=== PATIENT | male | born 1940 | race Caucasian/White ===

== ENCOUNTER → 2017-05-27 | Outpatient (CLI) | payer MEDICARE, BC ==
[~2017-05-27] MED LIST: ALLOPURINOL100 MG PO; BYSTOLIC5 MG PO; COLACE 100100 MG/CAP PO; SYNTHROID 0.10.15 MG PO; TRICOR145 MG PO; ZETIA 10MG TAB10 MG PO
== END ==
LOC: COL.VAS 10:23
DX: I63.9 Cerebral infarction, unspecified (principal); I67.82 Cerebral ischemia; I65.23 Occlusion and stenosis of bilateral carotid arteries; R09.89 Other specified symptoms and signs involving the circulatory and respiratory systems; R51 Headache

== ENCOUNTER 2017-06-18 13:21 | Emergency (ER) | payer MEDICARE, BC ==
[~2017-06-18] VITALS: Ht 180.3 cm; Wt 89.1 kg
[~2017-06-18 13:21] MED LIST changes: -ALLOPURINOL100 MG PO; +ZYLOPRIM 100MG100 MG PO
[2017-06-18 13:25] VITALS: TEMP 97.7
[2017-06-18] MEDS ORDERED: ASPIRIN E.C. 8181 MG PO (15:11)
[2017-06-18] MEDS ORDERED: BYSTOLIC20 MG PO (15:12)
[2017-06-18 15:35] LABS: BASO % 0.2 % (0.0-2.0); EOS # 0.1 (0.0-0.7); EOS % 0.4 % (0-4.0); GRAN # 7.8 (1.4-6.5); GRAN % 59.5 % (42.2-75.2); HEMATOCRIT 45.4 % (42.0-52.0); HEMOGLOBIN 15.6 g/dl (13.5-18.0); LYMPH # 3.8 (1.2-3.4); LYMPH % 29.1 % (20.0-51.0); MEAN CELL VOLUME 92 fl (80.0-100.0); MEAN CORPUSCULAR HEMOGLOBIN 32 pg (27.0-31.0); MEAN CORPUSCULAR HGB CONC 34 g/dl (33.0-37.0); MEAN PLATELET VOLUME 11.7 fl (7.4-10.4); MONO # 1.4 (0.1-0.6); MONO % 10.5 % (1.7-9.3); PLATELET COUNT 165 K/mm3 (130-400); RED BLOOD COUNT 4.94 M/mm3 (4.20-5.60)
[2017-06-18 15:48] LABS: ALANINE AMINOTRANSFERASE 33 U/L (21-72); ALBUMIN 4.5 gm/dL (3.5-5.0); ALKALINE PHOSPHATASE 102 U/L (50-136); ANION GAP 11 mmol/L (7-16); AST,SGOT 19 U/L (15-37); BILIRUBIN,TOTAL 0.9 mg/dL (0.0-1.0); BLOOD UREA NITROGEN 26 mg/dL (9-20); CALCIUM 9.7 mg/dL (8.4-10.2); CARBON DIOXIDE 25 mmol/L (22-30); CHLORIDE 101 mmol/L (98-107); CREATININE, serum 1.14 mg/dL (0.66-1.25); GLUCOSE 150 mg/dL (74-106); POTASSIUM 4.1 mmol/L (3.4-5.0); SODIUM 137 mmol/L (137-145); TOTAL PROTEIN 8.1 gm/dL (6.4-8.2)
[2017-06-18 15:56] LABS: TROPONIN-I < 0.012 ng/mL (0.000-0.034)
[2017-06-18 15:57] LABS: ERYTHROCYTE SEDIMENTATION RATE 16 mm/hr (0-30)
[2017-06-18] MEDS ORDERED: PERCOCET 325 MG1 TA2 PO (17:20)
[2017-06-18] MEDS ORDERED: INDOCIN 25MG CA25 MG PO (17:22)
[2017-06-18 17:57] VITALS: BP 141/73; PULSE 50
== END 2017-06-18 17:57 | disposition home or self-care (01) ==
LOC: COL.ER 13:21
PROVIDERS: Emergency Medicine
DX: M25.542 Pain in joints of left hand (principal); M25.541 Pain in joints of right hand; M25.511 Pain in right shoulder; M25.512 Pain in left shoulder; I10 Essential (primary) hypertension; E78.5 Hyperlipidemia, unspecified; E03.9 Hypothyroidism, unspecified; M10.9 Gout, unspecified; Z86.73 Personal history of transient ischemic attack (TIA), and cerebral infarction without residual deficits; Z79.82 Long term (current) use of aspirin
CPT/HCPCS: J1885; J3010

== ENCOUNTER 2017-06-20 07:35 | Emergency (ER) | payer MEDICARE, BC ==
[~2017-06-20] VITALS: Ht 182.9 cm; Wt 90.9 kg
[~2017-06-20 07:35] MED LIST changes: +ASPIRIN E.C. 8181 MG PO; +BYSTOLIC20 MG PO; +INDOCIN 25MG CA25 MG PO; +PERCOCET 325 MG1 TA2 PO
[2017-06-20 07:40] VITALS: TEMP 98.1
[2017-06-20 08:34] LABS: BASO % 0.3 % (0.0-2.0); EOS # 0.1 (0.0-0.7); EOS % 1.2 % (0-4.0); GRAN # 5.5 (1.4-6.5); GRAN % 73.4 % (42.2-75.2); HEMATOCRIT 43.9 % (42.0-52.0); LYMPH # 1.1 (1.2-3.4); LYMPH % 15.1 % (20.0-51.0); MEAN CELL VOLUME 92 fl (80.0-100.0); MEAN CORPUSCULAR HEMOGLOBIN 31 pg (27.0-31.0); MEAN CORPUSCULAR HGB CONC 34 g/dl (33.0-37.0); MEAN PLATELET VOLUME 11.4 fl (7.4-10.4); MONO # 0.7 (0.1-0.6); MONO % 9.7 % (1.7-9.3); PLATELET COUNT 131 K/mm3 (130-400); RED BLOOD COUNT 4.79 M/mm3 (4.20-5.60); REDCELL DISTRIBUTION WIDTH-CV 12.8 % (11.5-14.5)
[2017-06-20 08:41] LABS: BILIRUBIN,TOTAL 1.2 mg/dL (0.0-1.0); C-REACTIVE PROTEIN 7.5 mg/dL (0.0-0.9); CALCIUM 9.6 mg/dL (8.4-10.2); CREATININE, serum 0.9 mg/dL (0.66-1.25); POTASSIUM 4.5 mmol/L (3.4-5.0); TOTAL PROTEIN 7.5 gm/dL (6.4-8.2); URIC ACID 7.1 mg/dL (3.5-8.5)
[2017-06-20 08:57] LABS: ERYTHROCYTE SEDIMENTATION RATE 27 mm/hr (0-30)
[2017-06-20 09:02] LABS: COLLECTION METHOD CLEAN CATCH
[2017-06-20 09:07] LABS: MUCOUS Present /lpf; PH 5 (5-8); SQUAMOUS EPITHELIAL None Seen /hpf; URINE APPEARANCE Clear; URINE BACTERIA None Seen /hpf; URINE BILIRUBIN Negative (NEGATIVE); URINE BLOOD Negative (NEGATIVE); URINE COLOR Yellow; URINE GLUCOSE Negative (NEGATIVE); URINE KETONE Trace (NEGATIVE); URINE LEUKOCYTE ESTERASE Negative (NEGATIVE); URINE NITRATE Negative (NEGATIVE); URINE PROTEIN(semi-quant) Negative (NEGATIVE); URINE RBC 0-2 /hpf
[2017-06-20 11:47] VITALS: BP 153/60; PULSE 62
[2017-06-20] MEDS ORDERED: PREDNISONE20 MG PO (12:01)
== END 2017-06-20 12:19 | disposition home or self-care (01) ==
LOC: COL.ER 07:35
PROVIDERS: Emergency Medicine
DX: M25.521 Pain in right elbow (principal); M79.641 Pain in right hand; M25.551 Pain in right hip; I10 Essential (primary) hypertension; Z86.73 Personal history of transient ischemic attack (TIA), and cerebral infarction without residual deficits; Z79.82 Long term (current) use of aspirin
CPT/HCPCS: J1885; J2405; J3010; J7030; J7512

== ENCOUNTER 2017-08-12 09:30 | Outpatient (RCR) | payer MEDICARE, BC ==
[~2017-08-12 09:30] MED LIST changes: +PREDNISONE20 MG PO
== END 2017-09-12 | disposition home or self-care (01) ==
LOC: WSPT
DX: I63.9 Cerebral infarction, unspecified (principal)
CPT/HCPCS: G8978-GP; G8979-GP; G8980-GP

== ENCOUNTER → 2017-08-13 | Outpatient (CLI) | payer MEDICARE, BC | LOC: COL.RAD 12:00 | DX: I63.9 Cerebral infarction, unspecified (principal); G31.9 Degenerative disease of nervous system, unspecified ==

== ENCOUNTER 2018-04-09 02:11 | Emergency (ER) | payer MEDICARE, BC ==
[~2018-04-09] VITALS: Ht 180.3 cm; Wt 88.2 kg
[2018-04-09] MEDS ORDERED: AGGRENOX ER 251 CER PO (02:26)
[2018-04-09 02:46] LABS: BASO % 0.4 % (0.0-2.0); EOS # 0.2 (0.0-0.7); EOS % 2.6 % (0-4.0); GRAN # 3.8 (1.4-6.5); HEMATOCRIT 44.5 % (42.0-52.0); HEMOGLOBIN 15.5 g/dl (13.5-18.0); LYMPH # 3.4 (1.2-3.4); LYMPH % 42.1 % (20.0-51.0); MEAN CELL VOLUME 92 fl (80.0-100.0); MEAN CORPUSCULAR HEMOGLOBIN 32 pg (27.0-31.0); MEAN CORPUSCULAR HGB CONC 35 g/dl (33.0-37.0); MEAN PLATELET VOLUME 10.8 fl (7.4-10.4); MONO # 0.6 (0.1-0.6); MONO % 7.8 % (1.7-9.3); PLATELET COUNT 136 K/mm3 (130-400); RED BLOOD COUNT 4.83 M/mm3 (4.20-5.60)
[2018-04-09 03:00] LABS: ALANINE AMINOTRANSFERASE 29 U/L (21-72); ALBUMIN 4.4 gm/dL (3.5-5.0); ALKALINE PHOSPHATASE 97 U/L (50-136); ANION GAP 8 mmol/L (7-16); AST,SGOT 25 U/L (15-37); BILIRUBIN,TOTAL 0.5 mg/dL (0.0-1.0); BLOOD UREA NITROGEN 21 mg/dL (9-20); C-REACTIVE PROTEIN < 0.5 mg/dL (0.0-0.9); CALCIUM 9.8 mg/dL (8.4-10.2); CARBON DIOXIDE 27 mmol/L (22-30); CHLORIDE 104 mmol/L (98-107); CREATININE, serum 0.96 mg/dL (0.66-1.25); GLUCOSE 129 mg/dL (74-106); POTASSIUM 3.9 mmol/L (3.4-5.0); SODIUM 139 mmol/L (137-145); TOTAL PROTEIN 7.6 gm/dL (6.4-8.2)
[2018-04-09 03:09] LABS: TROPONIN-I < 0.012 ng/mL (0.000-0.034)
[2018-04-09 03:31] VITALS: TEMP 96.8
[2018-04-09] MEDS ORDERED: ATIVAN 0.50.5 MG/TAB PO (05:34)
[2018-04-09 07:32] VITALS: PULSE 64
[2018-04-09 07:50] VITALS: BP 160/74
== END 2018-04-09 08:07 | disposition home or self-care (01) ==
LOC: COL.ER 02:11
PROVIDERS: Emergency Medicine
DX: I10 Essential (primary) hypertension (principal); Z79.82 Long term (current) use of aspirin; Z86.73 Personal history of transient ischemic attack (TIA), and cerebral infarction without residual deficits
CPT/HCPCS: J2060; J2405; J7030

== ENCOUNTER 2018-07-25 11:08 | Emergency (ER) | payer MEDICARE, BC ==
[~2018-07-25] VITALS: Ht 180.3 cm; Wt 91.8 kg
[~2018-07-25 11:08] MED LIST changes: +AGGRENOX ER 251 CER PO; +ATIVAN 0.50.5 MG/TAB PO
[2018-07-25 11:20] VITALS: TEMP 96.8
[2018-07-25 11:47] LABS: BASO % 0.3 % (0.0-2.0); EOS # 0.2 (0.0-0.7); EOS % 2.7 % (0-4.0); GRAN # 3.3 (1.4-6.5); GRAN % 55.7 % (42.2-75.2); HEMATOCRIT 41.7 % (42.0-52.0); HEMOGLOBIN 14.6 g/dl (13.5-18.0); LYMPH # 1.9 (1.2-3.4); LYMPH % 32.3 % (20.0-51.0); MEAN CELL VOLUME 94 fl (80.0-100.0); MEAN CORPUSCULAR HEMOGLOBIN 33 pg (27.0-31.0); MEAN CORPUSCULAR HGB CONC 35 g/dl (33.0-37.0); MEAN PLATELET VOLUME 10.6 fl (7.4-10.4); MONO # 0.5 (0.1-0.6); MONO % 8.7 % (1.7-9.3); PLATELET COUNT 118 K/mm3 (130-400); RED BLOOD COUNT 4.46 M/mm3 (4.20-5.60); REDCELL DISTRIBUTION WIDTH-CV 12.9 % (11.5-14.5)
[2018-07-25 11:57] LABS: INR 1.1 (0.8-3.0)
[2018-07-25 11:58] LABS: ALANINE AMINOTRANSFERASE 15 U/L (21-72); ALBUMIN 4.1 gm/dL (3.5-5.0); ALKALINE PHOSPHATASE 87 U/L (50-136); ANION GAP 8 mmol/L (7-16); AST,SGOT 22 U/L (15-37); BILIRUBIN,TOTAL 0.7 mg/dL (0.0-1.0); BLOOD UREA NITROGEN 15 mg/dL (9-20); CALCIUM 9.5 mg/dL (8.4-10.2); CARBON DIOXIDE 25 mmol/L (22-30); CHLORIDE 105 mmol/L (98-107); CREATININE, serum 0.97 mg/dL (0.66-1.25); GLUCOSE 127 mg/dL (74-106); POTASSIUM 4.3 mmol/L (3.4-5.0); SODIUM 138 mmol/L (137-145); TOTAL PROTEIN 7.1 gm/dL (6.4-8.2)
[2018-07-25 11:59] LABS: PARTIAL THROMBOPLASTIN TIME 33.7 SECONDS (26.0-37.0)
[2018-07-25 12:12] LABS: TROPONIN-I < 0.012 ng/mL (0.000-0.035)
[2018-07-25 13:13] VITALS: BP 116/58; PULSE 63
== END 2018-07-25 13:38 | disposition home or self-care (01) ==
LOC: COL.ER 11:08
PROVIDERS: Family Medicine
DX: I10 Essential (primary) hypertension (principal); Z86.73 Personal history of transient ischemic attack (TIA), and cerebral infarction without residual deficits; Z79.82 Long term (current) use of aspirin

== ENCOUNTER → 2018-08-04 | Outpatient (CLI) | payer MEDICARE, BC | LOC: COL.VAS 08:00 | DX: I67.89 Other cerebrovascular disease (principal); H81.10 Benign paroxysmal vertigo, unspecified ear; I65.21 Occlusion and stenosis of right carotid artery | CPT/HCPCS: A9585 ==

== ENCOUNTER → 2018-08-12 | Outpatient (CLI) | payer MEDICARE, BC | LOC: COL.RAD 14:03 | DX: I65.23 Occlusion and stenosis of bilateral carotid arteries (principal); I63.9 Cerebral infarction, unspecified; Z98.62 Peripheral vascular angioplasty status | CPT/HCPCS: Q9967 ==

== ENCOUNTER 2018-09-05 21:50 | Observation (INO) | payer MEDICARE, BC ==
[~2018-09-05] VITALS: Ht 180.3 cm; Wt 92.3 kg
[2018-09-05 22:19] LABS: BASO % 0.3 % (0.0-2.0); EOS # 0.2 (0.0-0.7); EOS % 2.5 % (0-4.0); GRAN # 3.9 (1.4-6.5); GRAN % 53.3 % (42.2-75.2); HEMATOCRIT 42.5 % (42.0-52.0); HEMOGLOBIN 14.9 g/dl (13.5-18.0); LYMPH # 2.6 (1.2-3.4); MEAN CELL VOLUME 93 fl (80.0-100.0); MEAN CORPUSCULAR HEMOGLOBIN 33 pg (27.0-31.0); MEAN CORPUSCULAR HGB CONC 35 g/dl (33.0-37.0); MEAN PLATELET VOLUME 10.8 fl (7.4-10.4); MONO # 0.6 (0.1-0.6); MONO % 7.6 % (1.7-9.3); PLATELET COUNT 133 K/mm3 (130-400); RED BLOOD COUNT 4.55 M/mm3 (4.20-5.60); REDCELL DISTRIBUTION WIDTH-CV 12.6 % (11.5-14.5)
[2018-09-05 22:21] LABS: INR 1.1 (0.8-3.0)
[2018-09-05 22:25] LABS: ALBUMIN 4.3 gm/dL (3.5-5.0); BILIRUBIN,TOTAL 0.6 mg/dL (0.0-1.0); CALCIUM 9.7 mg/dL (8.4-10.2); CREATININE, serum 1.55 (0.66-1.25); POTASSIUM 4.2 mmol/L (3.4-5.0); TOTAL PROTEIN 7.6 gm/dL (6.4-8.2)
[2018-09-05] MEDS ORDERED: SYNTHROID0.137 MG PO (23:38)
[2018-09-05] MEDS ORDERED: NORVASC 5MG5 MG/TAB PO (23:38)
[2018-09-05] MEDS ORDERED: ASPIRIN 81M81 MG/TA2 PO (23:39)
[2018-09-06] VITALS (10 sets, daily range): BP systolic 122–168; BP diastolic 44–63; PULSE 51–57; TEMP 97.4–98.4
--- NOTE | 2018-09-06 00:45 | NUR ---
Pt arrived to room 315 via stretcher from emergency department. Lung sounds clear, abdominal sounds active, pulses +3, dizziness upon standing needed 1 assist to the bed, not steady on feet- will be high fall risk. Elevated BP, other vitals stable. States pressure in head is no longer there from ER. Hand online user experience strategist equal, able to lift both arms and legs and meet resistance, no facial droop noted. Denies pain at this time.
[2018-09-06] MEDS ORDERED: NORVASC 5MG5 MG/TAB PO (00:49)
[2018-09-06 04:26] LABS: BASO % 0.7 % (0.0-2.0); EOS # 0.2 (0.0-0.7); EOS % 3.1 % (0-4.0); GRAN # 2.8 (1.4-6.5); GRAN % 46.1 % (42.2-75.2); HEMATOCRIT 40.1 % (42.0-52.0); LYMPH # 2.5 (1.2-3.4); LYMPH % 41.1 % (20.0-51.0); MEAN CELL VOLUME 94 fl (80.0-100.0); MEAN CORPUSCULAR HEMOGLOBIN 33 pg (27.0-31.0); MEAN CORPUSCULAR HGB CONC 35 g/dl (33.0-37.0); MEAN PLATELET VOLUME 10.8 fl (7.4-10.4); MONO # 0.5 (0.1-0.6); MONO % 8.7 % (1.7-9.3); PLATELET COUNT 115 K/mm3 (130-400); RED BLOOD COUNT 4.28 M/mm3 (4.20-5.60); REDCELL DISTRIBUTION WIDTH-CV 12.5 % (11.5-14.5)
[2018-09-06 04:36] LABS: ANION GAP 7 mmol/L (7-16); BLOOD UREA NITROGEN 18 mg/dL (9-20); CALCIUM 9.5 mg/dL (8.4-10.2); CARBON DIOXIDE 25 mmol/L (22-30); CHLORIDE 105 mmol/L (98-107); CHOLESTEROL 210 mg/dL (120-200); CHOLESTEROL RISK RATIO 6.3; CREATININE, serum 1.15 (0.66-1.25); GLUCOSE 106 mg/dL (74-106); HDL CHOLESTEROL 33 mg/dL; LDL CHOLESTEROL 108 mg/dL; POTASSIUM 4.1 mmol/L (3.4-5.0); SODIUM 137 mmol/L (137-145); TRIGLYCERIDE 347 mg/dL
[2018-09-06 05:30] LABS: TROPONIN-I 6 HR POST INITIAL < 0.012 ng/mL (0.000-0.034)
--- NOTE | 2018-09-06 05:49 | NUR ---
Pt's modified stroke scale, neuro checks have remain unchanged- no deeficits noted at this time, BP's, stroke scale, and neuro checks every hour. SBP 140's-150's. Ambulated to restroom once around 0100, SBA, a little unsteady but reported dizziness/vertigo was much improved. No reports of pain at this time.
--- NOTE | 2018-09-06 07:00 | NUR ---
Report given to EILEEN Nelson. Patient awake in bed. No needs at this time.
--- NOTE | 2018-09-06 08:30 | NUR ---
Assessment complete. Pt is AXO X3, denies having any pain at this time. Breathing is even and unlabored on room air. Tele on. LF INT flushes easily, remains free of complications, and is CDI. Pt's daughter is at the bedside; all questions answered. Dr. Zimmerman is at the bedside. Call light within reach, will continue to monitor.
--- NOTE | 2018-09-06 09:54 | NUR ---
SW attended clinical rounds to discuss discharge planning. Patient lives independently at home alone but his daughter lives close by. Patient's PCP is Dr Mxaimino Car but he will be seen by Dr Murdock since Dr Car retired. Patient obtains prescriptions from [facility] and denies difficulty obtaining meds. Patient does not use any home health services or DME in the home. Patient will be seen by PT and OT. Patient is interested in outpatient PT because he is an independent person and does not like to be home bound. BILL will follow up with PT and OT after eval but BILL does not anticipate any discharge needs.
--- NOTE | 2018-09-06 11:03 | NUR ---
Initial visit; Patient thanked Addictions Counselor for looking in on him and letting him know of the availability of spiritual care at [place].
--- NOTE | 2018-09-06 15:00 | NUR ---
Physical assessment completed, pt A+Ox3, denies dizziness iwth standing, this RN observed him walking from bed to chair and he was steady while ambulating. Chair alarm in place[facility] BLE [facility] + edema, further findings WNL.
--- NOTE | 2018-09-06 18:27 | NUR ---
tHIS rN REVIEWED discharge instructions with pt, answered all questions. INT remvoed with tip intact, site free of redness/swelling. personal belongings collected and pt escorted out
== END 2018-09-06 18:29 | disposition home or self-care (01) ==
LOC: COL.ER 21:50 → SURG 09-06 00:10 → MEDICAL 09-06 00:26
PROVIDERS: Emergency Medicine; Nurse Practitioner; ADMIT Internal Medicine
DX: R41.82 Altered mental status, unspecified (principal); E78.5 Hyperlipidemia, unspecified; Z86.73 Personal history of transient ischemic attack (TIA), and cerebral infarction without residual deficits; E03.9 Hypothyroidism, unspecified; M10.9 Gout, unspecified; I16.0 Hypertensive urgency; R94.31 Abnormal electrocardiogram [ECG] [EKG]; I12.9 Hypertensive chronic kidney disease with stage 1 through stage 4 chronic kidney disease, or unspecified chronic kidney disease; N18.9 Chronic kidney disease, unspecified; K21.9 Gastro-esophageal reflux disease without esophagitis; G62.9 Polyneuropathy, unspecified; M19.011 Primary osteoarthritis, right shoulder; M19.012 Primary osteoarthritis, left shoulder; I08.3 Combined rheumatic disorders of mitral, aortic and tricuspid valves; Z88.8 Allergy status to other drugs, medicaments and biological substances; Z88.6 Allergy status to analgesic agent; Z88.5 Allergy status to narcotic agent; Z79.82 Long term (current) use of aspirin; Z96.653 Presence of artificial knee joint, bilateral
CPT/HCPCS: A9585; J7030

== ENCOUNTER 2018-12-26 09:30 | Outpatient (RCR) | payer MEDICARE, BC ==
[~2018-12-26 09:30] MED LIST changes: +ASPIRIN 81M81 MG/TA2 PO; +NORVASC 5MG5 MG/TAB PO; +SYNTHROID0.137 MG PO
== END 2019-02-05 | disposition still patient (30) ==
LOC: WSPT
DX: I63.9 Cerebral infarction, unspecified (principal); R26.0 Ataxic gait; R29.818 Other symptoms and signs involving the nervous system

== ENCOUNTER → 2019-07-05 | Outpatient (CLI) | payer MEDICARE, BC | LOC: COL.RAD 07-03 13:00 | DX: I65.23 Occlusion and stenosis of bilateral carotid arteries (principal); I65.03 Occlusion and stenosis of bilateral vertebral arteries; Z95.828 Presence of other vascular implants and grafts | CPT/HCPCS: Q9967 ==

== ENCOUNTER → 2019-08-01 | Outpatient (CLI) | payer MEDICARE, BC | LOC: COL.CARD 10:30 | DX: I69.30 Unspecified sequelae of cerebral infarction (principal) ==

== ENCOUNTER 2020-01-30 10:00 | Outpatient (RCR) | payer MEDICARE, BC | END 2020-02-29 | disposition home or self-care (01) | LOC: WSC | DX: E11.42 Type 2 diabetes mellitus with diabetic polyneuropathy (principal); R26.0 Ataxic gait ==

== ENCOUNTER 2020-09-05 15:48 | Emergency (ER) | payer MEDICARE, BC ==
[~2020-09-05] VITALS: Ht 167.6 cm; Wt 95.5 kg
[2020-09-05 16:20] VITALS: TEMP 98.6
[2020-09-05] MEDS ORDERED: CEPHALEXIN500 M1 PO (17:00)
[2020-09-05 17:39] VITALS: BP 145/74; PULSE 82
== END 2020-09-05 17:39 | disposition home or self-care (01) ==
LOC: COL.ER 15:48
DX: S91.214A Laceration without foreign body of right lesser toe(s) with damage to nail, initial encounter (principal); I10 Essential (primary) hypertension; E78.5 Hyperlipidemia, unspecified; E03.9 Hypothyroidism, unspecified; Z86.73 Personal history of transient ischemic attack (TIA), and cerebral infarction without residual deficits; Z88.8 Allergy status to other drugs, medicaments and biological substances; Z88.6 Allergy status to analgesic agent; Z79.82 Long term (current) use of aspirin; Z79.890 Hormone replacement therapy; W22.8XXA Striking against or struck by other objects, initial encounter

== ENCOUNTER 2020-10-08 11:35 | Emergency (ER) | payer MEDICARE, BC ==
[~2020-10-08] VITALS: Ht 180.3 cm; Wt 91.8 kg
[~2020-10-08 11:35] MED LIST changes: +CEPHALEXIN500 M1 PO
[2020-10-08 11:40] VITALS: TEMP 97.4
[2020-10-08 12:16] LABS: BASO % 0.3 % (0.0-2.0); EOS # 0.3 (0.0-0.7); EOS % 3.8 % (0-4.0); GRAN # 4.1 (1.4-6.5); HEMOGLOBIN 14.4 g/dl (13.5-18.0); LYMPH # 2.1 (1.2-3.4); LYMPH % 29.9 % (20.0-51.0); MEAN CELL VOLUME 94 fl (80.0-100.0); MEAN CORPUSCULAR HEMOGLOBIN 32 pg (27.0-31.0); MEAN CORPUSCULAR HGB CONC 34 g/dl (33.0-37.0); MEAN PLATELET VOLUME 10.4 fl (7.4-10.4); MONO # 0.6 (0.1-0.6); MONO % 7.7 % (1.7-9.3); PLATELET COUNT 147 K/mm3 (130-400); RED BLOOD COUNT 4.57 M/mm3 (4.20-5.60)
[2020-10-08 12:29] LABS: ALANINE AMINOTRANSFERASE 15 U/L (4-49); ALBUMIN 4.3 gm/dL (3.5-5.0); ALKALINE PHOSPHATASE 91 U/L (50-136); ANION GAP 6 mmol/L (7-16); AST,SGOT 26 U/L (15-37); BILIRUBIN,TOTAL 0.6 mg/dL (0.0-1.0); BLOOD UREA NITROGEN 21 mg/dL (9-20); CALCIUM 9.6 mg/dL (8.4-10.2); CARBON DIOXIDE 27 mmol/L (22-30); CHLORIDE 102 mmol/L (98-107); CREATININE, serum 1.19 (0.66-1.25); GLUCOSE 114 mg/dL (74-106); POTASSIUM 4.4 mmol/L (3.4-5.0); SODIUM 136 mmol/L (137-145)
[2020-10-08] MEDS ORDERED: ZOLOFT 25MG25 MG PO (12:43)
[2020-10-08] MEDS ORDERED: ZOLOFT 50MG50 MG PO (12:43)
[2020-10-08 13:15] LABS: TROPONIN-I < 0.012 ng/mL (0.000-0.035)
[2020-10-08 14:10] VITALS: BP 177/83; PULSE 50
== END 2020-10-08 14:10 | disposition home or self-care (01) ==
LOC: COL.ER 11:35
PROVIDERS: Emergency Medicine
DX: I10 Essential (primary) hypertension (principal); Z86.73 Personal history of transient ischemic attack (TIA), and cerebral infarction without residual deficits; Z88.1 Allergy status to other antibiotic agents; Z88.5 Allergy status to narcotic agent; Z88.8 Allergy status to other drugs, medicaments and biological substances; Z79.82 Long term (current) use of aspirin; Z79.899 Other long term (current) drug therapy

== ENCOUNTER 2020-11-01 09:15 | Outpatient (RCR) | payer MEDICARE, BC ==
[~2020-11-01 09:15] MED LIST changes: +ZOLOFT 25MG25 MG PO; +ZOLOFT 50MG50 MG PO
== END 2020-12-24 | disposition home or self-care (01) ==
LOC: WSPT
DX: Z00.00 Encounter for general adult medical examination without abnormal findings (principal); E78.5 Hyperlipidemia, unspecified; I10 Essential (primary) hypertension; F41.9 Anxiety disorder, unspecified; E55.9 Vitamin D deficiency, unspecified; N40.0 Benign prostatic hyperplasia without lower urinary tract symptoms; G90.9 Disorder of the autonomic nervous system, unspecified; Z91.81 History of falling; Z86.73 Personal history of transient ischemic attack (TIA), and cerebral infarction without residual deficits; Z87.39 Personal history of other diseases of the musculoskeletal system and connective tissue

== ENCOUNTER 2022-04-03 09:45 | Outpatient (RCR) | payer MEDICARE, BC ==
[~2022-04-03 09:45] MED LIST changes: +BYSTOLIC10 MG PO; +NORVASC 10MG10 MG PO
== END 2022-04-06 | disposition home or self-care (01) ==
LOC: WSPT
DX: R26.89 Other abnormalities of gait and mobility (principal)

== ENCOUNTER → 2022-07-02 | Outpatient (CLI) | payer MEDICARE, BC ==
[~2022-07-02] VITALS: Ht 180.3 cm; Wt 87.4 kg
[~2022-07-02] MED LIST changes: +LYRICA 75MG CAP75 MG PO; +MEDROL 4MG DOSPA4 MG PO; +MELATIN 3 MG-11 TAB PO
[2022-07-02 14:12] VITALS: BP 134/58; PULSE 52; TEMP 97.2
[2022-07-02 15:45] VITALS: BP 127/53; PULSE 55
[2022-07-02 15:50] VITALS: BP 131/48; PULSE 54
== END ==
LOC: COL.RAD 13:45
DX: M47.816 Spondylosis without myelopathy or radiculopathy, lumbar region (principal); M51.26 Other intervertebral disc displacement, lumbar region; M48.061 Spinal stenosis, lumbar region without neurogenic claudication; M43.16 Spondylolisthesis, lumbar region
CPT/HCPCS: J2704

== ENCOUNTER 2023-03-30 16:21 | Emergency (ER) | payer MEDICARE, BC ==
[~2023-03-30] VITALS: Ht 180.3 cm; Wt 87.3 kg
[2023-03-30 16:31] VITALS: TEMP 98.1
[2023-03-30] MEDS ORDERED: CEPHALEXIN500 M1 PO (17:58)
[2023-03-30 18:38] VITALS: BP 177/64; PULSE 63
== END 2023-03-30 18:38 | disposition home or self-care (01) ==
LOC: COL.ER 16:21
DX: S91.111A Laceration without foreign body of right great toe without damage to nail, initial encounter (principal); S00.83XA Contusion of other part of head, initial encounter; S00.511A Abrasion of lip, initial encounter; Z79.1 Long term (current) use of non-steroidal anti-inflammatories (NSAID); V00.841A Fall from standing electric scooter, initial encounter; W22.03XA Walked into furniture, initial encounter

== ENCOUNTER → 2023-05-17 | Outpatient (CLI) | payer OTHER | LOC: COL.RAD 13:48 | DX: I70.201 Unspecified atherosclerosis of native arteries of extremities, right leg (principal); I74.3 Embolism and thrombosis of arteries of the lower extremities | CPT/HCPCS: Q9967 ==